=== PATIENT | female | born 1975 | race Caucasian/White ===

== ENCOUNTER 2018-05-16 08:54 | Emergency (ER) | payer OTHER, SELFPAY ==
[2018-05-16 08:55] VITALS: BP 138/69; PULSE 63; RESP 18; TEMP 36.1; O2SAT 99; BMI 31.8
[2018-05-16] MEDS: morphine 8 MG/ML Syringe IV (09:34)
[2018-05-16] MEDS: Ondansetron ODT 4 MG Tablet PO (09:34)
--- NOTE | 2018-05-16 09:48 | ED.VISSUMM ---
- ER Visit Summary Date of Service: 05/16/18 Chief Complaint: Left lower back pain status post fall on Thursday History of Present Illness: The patient is a 43 F who presents because of increasing pain left lower back status post fall. She fell onto her back and struck the edge of a step. She was seen at outside facility. X-rays were obtained at that time which were negative. She was placed on baclofen and Toradol. She states she was medicated with morphine, Valium and tramadol. She was told to apply heat. She denies fever, chills night sweats. She denies any bowel bladder dysfunction. She denies saddle paresthesia or anesthesia. She denies any radicular pain. She denies foot drop with walking. She denies quadricep weakness going up or down steps. She denies dysuria, frequency, urgency or hematuria. states she has a bruise left lower back. Physical Examination: Patient appears in discomfort. Minimal movement causes her significant pain. Vital signs are noted and are marked for an elevated blood pressure 138/69. HEENT exam is unremarkable. Heart is regular without murmur, gallop or rub. S1 and S2 are normal. Lungs are clear to auscultation with good movement of air bilaterally. Abdomen is soft nontender bowel sounds are present normal. Is no palpable, pulsatile mass or abdominal bruit. Unable to examine lower back since she is in her dress and will need to be placed in a gown. Will attempt to complete back exam after patient is medicated. Patella and ankle reflex are 2+ and symmetric. EHL is intact. There is no clonus or Babinski sign. Sensation is normal. DP and PT pulses are palpable. Test Results: None Emergency Department Course and Treatment: IV was established. She was medicated with Zofran and morphine. Patient initially received 4 mg of Zofran IV push and formal grams of morphine IV push. She was reassessed at 1035. She was still having significant pain. Able to complete back exam at that time. She received an additional 4 mg of morphine. She has point tenderness left paralumbar region. Straight leg test is negative. Crossover test is negative. Patella and ankle reflex are 2+. EHL is intact. Normal sensation. DP and PT pulses are palpable. Treatment Plan: Prescription for [place], ice and rest. Disposition: Discharged to home in stable improved condition Impression: Left lower back pain secondary to blunt trauma subsequent visit This note was generated with [employer] dictation software. It may contain incorrect words, spelling, and punctuation that were not noted in review of the chart prior to signing ED Disposition - Plan for ED Patient: Disposition: Home or Assisted Living Chief Complaint: Back Instructions: ED Contusion Back Prescriptions: Hydrocodone Bitart/Apap 5-325 [[place] 5MG-325MG] 1 tablet PO Q6H PRN PRN 3 Days #10 tablet PRN Reason: Pain Referrals: Kamille Patterson MD [Primary Care Provider] - 3-5 Days if not improving
--- NOTE | 2018-05-16 09:51 | ED.DCSUM_ITS ---
- ER Visit Summary Date of Service: 05/16/18 Chief Complaint: Left lower back pain status post fall on Thursday History of Present Illness: The patient is a 43 F who presents because of increasing pain left lower back status post fall. She fell onto her back and struck the edge of a step. She was seen at outside facility. X-rays were obtained at that time which were negative. She was placed on baclofen and Toradol. She states she was medicated with morphine, Valium and tramadol. She was told to apply heat. She denies fever, chills night sweats. She denies any bowel bladder dysfunction. She denies saddle paresthesia or anesthesia. She denies any radicular pain. She denies foot drop with walking. She denies quadricep weakness going up or down steps. She denies dysuria, frequency, urgency or hematuria. states she has a bruise left lower back. Physical Examination: Patient appears in discomfort. Minimal movement causes her significant pain. Vital signs are noted and are marked for an elevated blood pressure 138/69. HEENT exam is unremarkable. Heart is regular without murmur, gallop or rub. S1 and S2 are normal. Lungs are clear to auscultation with good movement of air bilaterally. Abdomen is soft nontender bowel sounds are present normal. Is no palpable, pulsatile mass or abdominal bruit. Unable to examine lower back since she is in her dress and will need to be placed in a gown. Will attempt to complete back exam after patient is medicated. Patella and ankle reflex are 2+ and symmetric. EHL is intact. There is no clonus or Babinski sign. Sensation is normal. DP and PT pulses are palpable. Test Results: None Emergency Department Course and Treatment: IV was established. She was medicated with Zofran and morphine. Patient initially received 4 mg of Zofran IV push and formal grams of morphine IV push. She was reassessed at 1035. She was still having significant pain. Able to complete back exam at that time. She received an additional 4 mg of morphine. She has point tenderness left paralumbar region. Straight leg test is negative. Crossover test is negative. Patella and ankle reflex are 2+. EHL is intact. Normal sensation. DP and PT pulses are palpable. Treatment Plan: Prescription for [place], ice and rest. Disposition: Discharged to home in stable improved condition Impression: Left lower back pain secondary to blunt trauma subsequent visit This note was generated with [employer] dictation software. It may contain incorrect words, spelling, and punctuation that were not noted in review of the chart prior to signing ED Disposition - Plan for ED Patient: Disposition: Home or Assisted Living Chief Complaint: Back Instructions: ED Contusion Back Prescriptions: Hydrocodone Bitart/Apap 5-325 [[place] 5MG-325MG] 1 tablet PO Q6H PRN PRN 3 Days # 10 tablet PRN Reason: Pain Referrals: Kamille Patterson MD [Primary Care Provider] - 3-5 Days if not improving
[2018-05-16 10:28] VITALS: PULSE 86; RESP 14; O2SAT 99
[2018-05-16] MEDS: Morphine 4 MG/ML Syringe IV (10:49)
[2018-05-16 12:17] VITALS: PULSE 50; RESP 14; O2SAT 99
--- NOTE | 2018-05-16 14:58 | ED.VISSUMM ---
- ER Visit Summary Date of Service: 05/16/18 Chief Complaint: [] History of Present Illness: The patient is a 43 F [] Physical Examination: [] Test Results: [] Emergency Department Course and Treatment: [] Treatment Plan: [] Disposition: [] Impression: [] This note was generated with [email or web address] dictation software. It may contain incorrect words, spelling, and punctuation that were not noted in review of the chart prior to signing ED Disposition - Plan for ED Patient: Disposition: Home or Assisted Living Chief Complaint: Back Instructions: ED Contusion Back Prescriptions: Morphine [Morphine IR] 15 mg PO Q4H PRN PRN #12 tablet PRN Reason: Back pain Hydrocodone Bitart/Apap 5-325 [[place] 5MG-325MG] 1 tablet PO Q6H PRN PRN 3 Days #10 tablet PRN Reason: Pain Referrals: Kamille Patterson MD [Primary Care Provider] - 3-5 Days if not improving
== END 2018-05-16 12:22 | disposition home or self-care (01) ==
PROVIDERS: Emergency Provider Emergency Medicine; Family Provider Internal Medicine; PCP Internal Medicine
DX: M54.5 Low back pain (principal); W19.XXXA Unspecified fall, initial encounter; E03.9 Hypothyroidism, unspecified
CPT/HCPCS: 96374; 96375; 99283; J7050; A4216

== ENCOUNTER 2018-06-25 11:30 | Outpatient (RCR) | payer OTHER, SELFPAY ==
--- NOTE | 2018-06-10 10:24 | HP.OTPEDEV_ITS ---
Patient's Visit Information CAROL SCOTT is a 43 year old F, referred to Occupational Therapy by rosa HARRISON . Date of Evaluation: Occupational Therapist: Nga Alfonso Assessment/Problems/Goals - Anticipated Interventions Thank you for the opportunity to evaluate your patient. Please let me know if there are questions or concerns regarding this plan of care. Physician Signature: Date:
--- NOTE | 2018-06-10 10:24 | HP.OTEVAL ---
Patient's Visit Information CAROL SCOTT is a 43 year old F, referred to Occupational Therapy by CHRISTOPHER MORALEZ, with a diagnosis of R elbow pain. 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 She drives bus and cleans houses. She lives with her spouse and children. She is independent with BADL's and has been R hand dominent. Injured back and L and R elbow when she fell down the stairs. - Pain Right Elbow 2 Pain Intensity Range: 2, 3, 4, 5, 6, 7, 8, 9, 10 - Objective Objective/Observation: Pt demo increased pain with movement and at rest of R elbow with completion of functional tasks of R elbow. - ROM Elbow: L 0, R -15 extension - Strength Incinerator Plant Supervisor: R 5#, L 50# Lateral Pinch: R 3#, L 8# Tripod Pinch: R 0#, L 6# Strength Comments: Pt demo decreased strength of R hand - Edema Other: Pt demo slight edema R elbow - Sensation Sensation Comments: Pt states no numbness or tingling - DASH-Disabilities of Arm, Shoulder& Hand DASH Sum: 93 - Goals Goal:: Pt will progress w/ R sheet ironworker strength by 45# to assist with IADL tasks independently by d/c from OT services. Goal:: Pt will progress w/ R elbow extension by 15 degrees AROM by d/c from OT services Goal:: Pt will demo no pain greater than 1/10 of R elbow by d/c from OT services to increase pts ability to complete IADL's independently. Goal:: Pt will be educated on energy conservation and compensatory strategies to decrease use of R elbow when in pain with good understanding and demo 100%x. Goal:: Pt will be educated on R UE HEP with good understanding and demo 100%x - Rehabilitation General Assessment: Pt demonstrates increased pain of R elbow, decreased extension of R elbow with decreased R UE strength. Pt would benefit from direct occupational therapy services to decrease R elbow pain, increase strength and R elbow extension AROM, educate on HEP, and energy conservation and compensatory strategies to increase pts quality of life. Rehabilitation Potential: Good - Anticipated Interventions Anticipated Interventions: A/AAROM/PROM, Strengthening, Massage, Modalities, Orthoses, Joint Protection/Energy Conservation, Ergonomic Education, ADL Training, Education re assistive Equipment, Education re Self Massage Techniques, Home Program - Visit Plan Frequency: 2-3x /Week Duration: 6 Weeks General Plan: Pt would benefit from direct occupational therapy services to decrease R elbow pain, increase strength and R elbow extension AROM, educate on HEP, and energy conservation and compensatory strategies to increase pts quality of life. TEXT: Thank you for the opportunity to evaluate your patient. For Medicare and Medicare HMO plans, please review the plan of care and approve it. It will need to be FAXED BACK to us at [phone] for Medicare purposes. Please let me know if there are questions or concerns regarding this plan of care. Physician Signature: Date:
--- NOTE | 2018-11-25 14:18 | HP.OTDCNRP_ITS ---
HP - Discharge Summary - Patient Information CAROL SCOTT was seen in my office for initial evaluation on 06/10/18. The following Plan of Care was established for this patient: Initial Frequency: 2-3x /Week Initial Duration: 6 Weeks Plan: discharge , told pt to cancel remaining appts. , to call Dr jose if pain increases or doesn't resolve - Anticipated Interventions Anticipated Interventions: A/AAROM/PROM, Strengthening, Massage, Modalities, Orthoses, Joint Protection/Energy Conservation, Ergonomic Education, ADL Training, Education re assistive Equipment, Education re Self Massage Techniques, Home Program This patient was last seen in our office 06/25/18. Pertinent comments regarding their Occupational therapy will appear below: Pt has progressed with OT goals, decreased R elbow pain to 2/10 and increase strength of R UE, right tripod pinch 13 lbs, lateral pinch 9lb, classroom coordinator 18 lbs. Pt's AROM R elbow ext 0 , flexion 135. Pt educated on R UE HEP. Pt had cortisone shot to help decrease her pain and no longer requires skilled OT interventions at this time. D/C OT services At this point I will be discontinuing this patient from occupational therapy. I would be happy to see this patient again in the future if found appropriate by the physician. Thank you! Nga Alfonso
== END 2018-06-25 19:00 | disposition home or self-care (01) ==
LOC: OT 11:30
PROVIDERS: Family Provider Internal Medicine; PCP Internal Medicine
DX: M77.11 Lateral epicondylitis, right elbow (principal); M25.521 Pain in right elbow
CPT/HCPCS: 97035; 97140; 97166; 97530

== ENCOUNTER 2025-02-24 10:06 | Emergency (ER) | payer OTHER, SELFPAY ==
[2025-02-24 10:06] VITALS: BP 136/74; PULSE 62; RESP 14; TEMP 36.6; O2SAT 98; BMI 39.2
--- NOTE | 2025-02-24 10:24 | EX.ED.DYSGE1 ---
HPI History of Present Illness Chief Complaint: Complaint Detail of Chief Complaint: Dysuria, frequency and continuous burning Informant: patient and family Onset/Context/Timing Onset: Weeks (Initial UA and urine culture February 01, 2025) Context: Sudden Onset Timing: Continuous Quality: Continuous burning Location: External genitalia/urethra Current Severity: Mild Maximum Severity: Severe Worsened by: Urination Relieved by: Nothing Associated Symptoms Associated Symptoms: Subjective fever Narrative Narrative: Patient is a 49-year-old woman. She has history of bladder suspension surgery. She reports that one of the slings ruptured. She states her bladder is prolapsed. She developed urinary symptoms beginning of the month. She was seen at the [facility] by her PCP Dr. Curtis. UA was unremarkable. Culture grew 50-100,000 Klebsiella pneumonia and less than 10,000 normal keanu. She was initially prescribed Bactrim. She is presently on ciprofloxacin. She states she has gotten no relief. She was told that she has to live like this the rest of her life. She does report nausea and low central back pain. She denies flank pain. She denies vomiting or diarrhea. She denies vaginal bleeding. She states that the initial symptoms she had when she was diagnosed with prolapsed uterus. She denies any abdominal pain. She has no other complaints. Prior similar symptoms: Yes Recent Illness/Hospitalization: Yes [facility] Medical History (Updated 02/24/25 @ 11:[address] Galo Prajapati MD) Hypothyroidism Home Medications ?Medication ?Instructions ?Recorded ?Last Taken ?Type ciprofloxacin HCl 500 mg tablet 500 mg PO BID 02/24/25 02/23/25 History cyclobenzaprine 5 mg tablet 5 mg PO QHS PRN muscle spasm 02/24/25 Unknown History levothyroxine 137 mcg tablet 137 mcg PO SUTUWETHSA 02/24/25 02/23/25 History Allergy/AdvReac Type Severity Reaction Status Date / Time acetaminophen (From Vicodin) Allergy Hives Verified 02/24/25 10:07 hydrocodone bitartrate (From Allergy Hives Verified 02/24/25 10:07 Vicodin) hydromorphone HCl (From Allergy Anaphylaxis Verified 02/24/25 10:07 Dilaudid) Social History Smoking Status: Never smoker ROS ROS ED Constitutional Constitutional ED: Reports chills, fever(s) and subjective; Denies sweats or weight loss Eyes Eyes: Denies blurry vision or change in vision Cardiovascular Cardiovascular: Denies chest pain Respiratory/Chest Respiratory/Chest: Denies cough, dyspnea or dyspnea on exertion Gastrointestinal Gastrointestinal: Reports nausea; Denies abdominal pain, diarrhea or vomiting Genitourinary Genitourinary ED: Reports dysuria and urinary frequency; Denies hematuria Musculoskeletal Musculoskeletal: Reports back pain; Denies arthralgias or myalgias Integumentary Denies rash Hematologic/Lymphatic Hematologic/Lymphatic: Reports systems reviewed and no addt'l complaints, except as documented EXAM Physical Exam Const Vital Signs: 02/24/25 10:06 02/24/25 10:35 Temperature 98 F 98 F Temperature Source Temporal Temporal Pulse Rate 62 62 Respiratory Rate 14 14 Blood Pressure 136/74 H 136/74 H Blood Pressure Mean 94 94 Pulse Ox 98 98 Oxygen Delivery Method Room Air Room Air Positive well nourished and well developed Constitutional Narrative: Patient appears uncomfortable. BMI is 39.2. General Appearance ED: well developed and pallor; Negative for cyanotic, diaphoretic or NAD HEENT Reports moist mucous membranes HEENT Narrative: Head is atraumatic normocephalic. Ears normal. Eyes PERRL and EOMs intact bilaterally General Eye ED: Negative for pale conjunctiva or scleral icterus Resp normal respiratory effort Cardio regular rate and regular rhythm GI normal to inspection, nondistended, normoactive bowel sounds, non-tender and non-distended; Negative for hepatosplenomegaly Narrative: External genitalia appears normal. There is no pain ovation all over the urethra or inferior portion of the vaginal opening. Patient complained of pain when I gently parted her labia. Speculum exam was unremarkable other than causing significant pain. Vaginal and cervical mucosa appear normal. Back/Spine no CVA tenderness Neuro oriented x3 and CN's II-XII intact bilaterally Sensorium / Orientation: alert Skin no rashes or lesions noted and no wounds General Skin Exam: pallor MDM MDM MDM Narrative Medical decision making narrative: This may represent a atrophic vaginitis, irritation due to the bladder suspension. Will perform external genitalia exam since she has not had one recently. Also will obtain UA and appropriate blood work to assess patient especially since she has persistent symptoms and spite of prescription for trimethoprim/sulfamethoxazole and ciprofloxacin. Based on the and the antibiotic gram there is a 90% sensitivity to trimethoprim/sulfamethoxazole and an 87% sensitivity to ciprofloxacin. Reviewing her records there was no sensitivity done. History & Record Review Additional record(s) reviewed:: Prior outpatient record (Documented HPI narrative) and Prior labs Lab Data Attestation: I reviewed the patient's lab results. Lab results narrative: CBC is normal. UA is negative. Labs: Laboratory Results - last 24 hr 02/24/25 02/24/25 10:24 10:33 WBC 6.3 RBC 4.63 Hgb 13.4 Hct 39.8 MCV 86.0 MCH 28.9 MCHC 33.7 RDW Std Deviation 45.6 H RDW Coeff of Katherine 14.5 Plt Count 201 MPV 9.2 Immature Gran % (Auto) 0.300 Neut % (Auto) 39.1 L Lymph % (Auto) 49.0 H Gem % (Auto) 7.8 Eos % (Auto) 3.0 Baso % (Auto) 0.8 Absolute Neuts (auto) 2.5 Absolute Lymphs (auto) 3.09 Nucleated RBC % 0 Urine Color Yellow Urine Clarity Sl. Cloudy Urine pH 6.0 Ur Specific [place] 1.020 Urine Protein 15 H Urine Glucose (UA) Normal Urine Ketones Negative Urine Occult Blood Negative Urine Nitrite Negative Urine Bilirubin Negative Urine Urobilinogen Normal Ur Leukocyte Esterase Negative Urine RBC 0 SEEN Urine WBC 0 SEEN Ur Squamous Epith Cells 0-5 SEEN Urine Bacteria 0 SEEN Urine Mucus 0 SEEN Postvoid was 40 cc[address] Per plan [address] Patel patient to be discharged. Treatment and Re-Evaluation Comments:: Patient was informed of results. She was told by Dr. Crum's PA that a culture has to be sent. She was informed that her UA is unremarkable. She states that her urine is always negative even though the cultures are positive. She is not scheduled to see until April. Will contact her urologist, Dr. Kristy Patel. Spoke with Dr. Patel. She requested a postvoid residual. Bladder scan was ordered and patient's to void to determine postvoid residual. If less than 200 plan is to discharge and have patient call office and she will move up her appointment to be seen. Discharge Plan Triage Chief Complaint: Complaint ED Provider: Prajapati,Galo Dx/Rx/DC Orders Clinical Impression: Pelvic pain in female, Dysuria, History of hypothyroidism Instructions: ED Dysuria, Uncertain Cause (Adult) Prescriptions: No Action levothyroxine 137 mcg tablet 137 mcg PO SUTUWETHSA cyclobenzaprine 5 mg tablet 5 mg PO QHS PRN (Reason: muscle spasm) Patient Comments: PT HAS THIS, BUT DOES NOT TAKE OFTEN. HAS NOT TAKEN SINCE NOVEMBER. ciprofloxacin HCl 500 mg tablet 500 mg PO BID Primary Care Provider: Lety Crum Referrals: Kristy Patel MD [Med Staff - Active Staff] - As soon as possible Lety Crum MD [Primary Care Provider] - Activity Restrictions/Additional Instructions: Call Dr. Patel's office. Staff is awaiting your call to have you seen. Print Language: Maltese Disposition Disposition: Home, Self Care
[2025-02-24 10:34] LABS: Bacteria 0 SEEN /hpf (None Seen); Mucous, Urine 0 SEEN /hpf (<or=2+); Red Blood Cells-Urine 0 SEEN /hpf (0-5); White Blood Cells 0 SEEN /hpf (0-5)
[2025-02-24 10:35] VITALS: BP 136/74; PULSE 62; RESP 14; TEMP 36.6; O2SAT 98
[2025-02-24 10:49] LABS: Color, Urine Yellow (Yellow); Glucose, Dipstick Normal (Normal); Ketone-Dipstick Negative (Negative); Leukocyte Esterase-Dipstick Negative /ul (Negative); Nitrite-Dipstick Negative (Negative); Occult Blood-Urine Negative /ul (Negative); Protein-Dipstick 15 mg/dl (Negative); Urine Bilirubin Dipstick Negative (Negative); Urine Clarity Sl. Cloudy (Clear); Urine Urobilinogen Normal (Normal)
[2025-02-24 10:57] LABS: Squamous Epithelial Cells - UA 0-5 SEEN /hpf (5-10)
[2025-02-24 10:58] LABS: Absolute Lymphocyte Count 3.09 X10^3/uL (0.83-4.51); Absolute Neutrophil Count 2.5 X10^3/uL (2.0-7.7); Basophil# 0.05 X10^3/uL; Basophil% 0.8 % (0-1); Eosinophil# 0.19 X10^3/uL; Hematocrit 39.8 % (37-47); Hemoglobin 13.4 g/dL (12.0-15.0); Lymphocyte # 3.09 X10^3/ul (0.83-4.51); Mean Corp Hgb Conc 33.7 g/dL (32-36); Mean Corpuscular Hgb 28.9 pg (27.0-32.0); Mean Platelet Vol. 9.2 fl (6.2-12.0); Monocyte# 0.49 X10^3/uL; Monocyte% 7.8 % (0-10); NRBC Flagged by Analyzer 0 % (0-5); Neutrophil # 2.47 X10^3/uL (2.7-7.7); Neutrophil % 39.1 % (47-70); Platelet Count 201 K/mm3 (150-450); RBC Distribution Width CV 14.5 % (11.6-14.6); RBC Distribution Width SD 45.6 fl (35.1-43.9); Red Blood Count 4.63 M/mm3 (4.2-5.4); White Blood Count 6.3 K/mm3 (4.4-11.0)
== END 2025-02-24 11:40 | disposition home or self-care (01) ==
PROVIDERS: Emergency Provider Emergency Medicine; PCP Internal Medicine; Visit Provider Emergency Medicine
DX: R10.2 Pelvic and perineal pain (principal); R30.0 Dysuria; E03.9 Hypothyroidism, unspecified; Z79.899 Other long term (current) drug therapy
CPT/HCPCS: 81001; 85025; 99283; A4216